=== PATIENT | male | born 1980 | race Caucasian/White ===

== ENCOUNTER 2017-10-30 18:28 | Emergency (ER) | payer SELFPAY ==
[2017-10-30 21:41] LABS: PLATELET COUNT 275 10^3/uL (150-400)
--- NOTE | 2017-10-30 23:20 | EDPHY ---
H & P Smoking Status: Current every day smoker Time Seen by Provider: 10/30/17 20:15 HPI/ROS: CHIEF COMPLAINT: Depression HISTORY OF PRESENT ILLNESS: 37-year-old male presents to the emergency department with depression. The patient states "I have a broken heart". He is not suicidal or homicidal. He had a recent break-up with his girlfriend and he found out that his friend is now currently dating his girlfriend. He feels very heart broken over this. He is requesting resources. He does not have a counselor or therapist. He does not have a history of mental illness. He smokes marijuana daily. Denies any other substance abuse. Denies pain in his chest or difficulty breathing. Denies headache. Denies reported trauma. REVIEW OF SYSTEMS: Constitutional: No fever, no chills. Eyes: No double or blurry vision. ENT: No sore throat. Respiratory: No cough, no shortness of breath. Cardiac: No chest pain. Gastrointestinal: No abdominal pain, vomiting or diarrhea. Genitourinary: No dysuria. Musculoskeletal: No neck or back pain. Skin: No rashes. Neurological: No headache. (Kalie Farnsworth) Past Medical/Surgical History: Marijuana daily (Kalie Farnsworth) Social History: Single (Kalie Farnsworth) Physical Exam: General Appearance: Alert, no distress. 122/84, afebrile. Eyes: Pupils equal and round. Extraocular motions are all intact. ENT: Mouth: Mucous membranes moist. Respiratory: No wheezing, rhonchi, or rales, lungs are clear to auscultation. Cardiovascular: Regular rate and rhythm. Gastrointestinal: Abdomen is soft and nontender, no masses, no rebound or guarding, bowel sounds normal. Neurological: Alert and oriented x 3, cranial nerves II through XII grossly intact Skin: Warm and dry, no rashes. Musculoskeletal: Nontender to palpate along the cervical, thoracic or lumbar spine. Neck is supple. Extremities: Full range of motion and no peripheral edema. Psychiatric: Patient is oriented X 3, there is no agitation. (Kalie Farnsworth) Constitutional: Initial Vital Signs Temperature (C) 37 C 10/30/17 18:36 Heart Rate 89 10/30/17 18:36 Respiratory Rate 16 10/30/17 18:36 Blood Pressure 122/84 H 10/30/17 18:36 O2 Sat (%) 95 10/30/17 18:36 O2 Delivery Mode Room Air Allergies/Adverse Reactions: No Known Allergies Allergy (Unverified 04/20/12 02:17) Home Medications: Medication Instructions Recorded Miscellaneous Medical Supply [NO 04/20/12 HOME MEDS] Medical Decision Making ED Course/Re-evaluation: 37-year-old male presents to the emergency department feeling depressed. He is not suicidal homicidal. He presents voluntarily. He is requesting resources. I spoke with mental health and they will come to provide him with resources. He declined mental health evaluation. I do not think he requires M1 hold. Mental health came to give the patient some resources. He is comfortable being discharged home. (Kalie Farnsworth) I did not see this patient while he was in the emergency department. However his care was discussed with the PA while the patient was in the department. I agree with treatment plan and management (Justo Serrano) Differential Diagnosis: Depression including functional and major depression, situational depression, medication side effect, drugs and alcohol abuse. (Kalie Farnsworth) - Data Points Laboratory Results: Laboratory Results 10/30/17 21:30 10/30/17 21:30 Departure - Departure Disposition: Home, Routine, Self-Care Clinical Impression: Depression Qualifiers: Depression Type: unspecified Qualified Code(s): F32.9 - Major depressive disorder, single episode, unspecified Condition: Good Instructions: Depression (ED) Additional Instructions: Follow-up per mental health instructions. Return to the emergency department if you develop any symptoms of suicidal or homicidal ideation. Referrals: [facility],. [Clinic] - As per Instructions
[2017-10-30 23:48] VITALS: BP 130/77
== END 2017-10-30 23:47 | disposition home or self-care (01) ==
DX: F32.9 Major depressive disorder, single episode, unspecified (principal); F17.200 Nicotine dependence, unspecified, uncomplicated
CPT/HCPCS: 80305; G0480